=== PATIENT | male | born 1995 | race Caucasian/White ===

== ENCOUNTER 2016-12-10 16:48 | Emergency (ER) | payer MEDICAID ==
[2016-12-10 17:01] VITALS: BP 117/80
--- NOTE | 2016-12-10 17:56 | EDM.PDOC ---
ED HPI GENERAL MEDICAL PROBLEM - General Chief Complaint: Behavioral/Psych Stated Complaint: LAW ENFORCEMENT Time Seen by Provider: 12/10/16 17:38 Source of Information: Reports: Patient, Police History Limitations: Reports: No Limitations - History of Present Illness INITIAL COMMENTS - FREE TEXT/NARRATIVE: Patient is a 21 y/o male who presents to the E.D. with [facility]'s Department. Patient has been detained with petition for involuntary committal obtained since the patient is wandering around homeless laying in the middle of public roads and [place]. The patient states he was kicked out of his mother's residence yesterday after the geosciences associate professor were called when he took her keys to her vehicle. Patient states he slept overnight in his vehicle at the [facility]. When asked if the patient was trying to kill himself he denied it. States he has no means of transportation since car is broken down and has been walking around. He does have a history of prior suicide thoughts approx. one year ago. Patient states plan was in place. He had a gun in his hand and did not go through with it. Patient was found to be wearing long rios, tshirt, socks, and shoes. He presents to ED for medical clearance. Patient denies any additional past medical history and is currently taking no medications. States he does consume alcohol on regular basis with his last drink yesterday consisted of 2 beers. He denies recreational drug use. - Related Data Allergies Allergy/AdvReac Type Severity Reaction Status Date / Time No Known Allergies Allergy Verified 12/10/16 16:55 Home Meds: Home Meds Allergy Pill. 12/10/16 [History] Past Medical History - Past Health History Medical/Surgical History: Denies Medical/Surgical History Cardiovascular History: Reports: None Respiratory History: Reports: None Gastrointestinal History: Reports: None Genitourinary History: Reports: None Neurological History: Reports: None Psychiatric History: Reports: Addiction, Depression Endocrine/Metabolic History: Reports: None Oncologic (Cancer) History: Reports: None Dermatologic History: Reports: None - Infectious Disease History Infectious Disease History: Reports: None - Past Surgical History Other Musculoskeletal Surgeries/Procedures:: Left arm fracture Social & Family History - Family History Family Medical History: Noncontributory - Tobacco Use Smoking Status *Q: Current Status Unknown Second Hand Smoke Exposure: No - Caffeine Use Caffeine Use: Reports: None - Recreational Drug Use Recreational Drug Use: Yes Drug Use in Last 12 Months: No Recreational Drug Type: Reports: Methamphetamine Recreational Drug Last Use: midnight last night ED ROS GENERAL - Review of Systems Review Of Systems: See Below Constitutional: Reports: No Symptoms HEENT: Denies: Vision Change Respiratory: Reports: No Symptoms Cardiovascular: Reports: No Symptoms GI/Abdominal: Reports: No Symptoms : Reports: No Symptoms Musculoskeletal: Reports: No Symptoms Neurological: Reports: No Symptoms Psychiatric: Reports: No Symptoms ED EXAM, BEHAVIORAL HEALTH - Physical Exam Exam: See Below Exam Limited By: No Limitations General Appearance: Alert, WD/WN, No Apparent Distress Eye Exam: Bilateral Eye: PERRL Ears: Hearing Grossly Normal Nose: Normal Inspection Throat/Mouth: Normal Voice, No Airway Compromise Head: Atraumatic, Normocephalic Neck: Normal Inspection, Supple Respiratory/Chest: No Respiratory Distress, No Accessory Muscle Use Cardiovascular: Normal Peripheral Pulses Neurological: Alert, Normal Mood/Affect, CN II-XII Intact, Normal Cognition, Normal Gait, No Motor/Sensory Deficits, Oriented x 3 Psychiatric: Alert, Normal Affect, Normal Cognition, Normal Mood, Oriented. No : Depressed Mood, Flat Affect, Restless, Tearful, Agitated, Homicidal Thoughts, Suicidal Plan, Suicidal Thoughts, Auditory Hallucinations, Visual Hallucinations , Pressured Speech, Paranoid Thoughts Skin Exam: Warm, Dry, Intact, Normal color, No rash COURSE, BEHAVIORAL HEALTH COMP - Course Vital Signs: Last Vital Signs Temp 98.6 F 12/10/16 16:56 Pulse 100 12/10/16 16:56 Resp 16 12/10/16 16:56 BP 117/80 12/10/16 16:56 Pulse Ox 96 12/10/16 16:56 Orders, Labs, Meds: Laboratory Tests 12/10/16 12/10/16 12/10/16 Range/Units 17:40 17:40 18:00 WBC 5.78 (4.23-9.07) K/mm3 RBC 5.41 (4.63-6.08) M/mm3 Hgb 16.2 (13.7-17.5) gm/L Hct 48.8 (40.1-51.0) % MCV 90.2 (79.0-92.2) fl MCH 29.9 (25.7-32.2) pg MCHC 33.2 (32.2-35.5) g/dl RDW Std Deviation 46.1 H (35.1-43.9) fL Plt Count 257 (163-337) K/mm3 MPV 10.6 (9.4-12.3) fl Neutrophils % (Manual) 51 (40-60) % Band Neutrophils % 0 (0-10) % Lymphocytes % (Manual) 46 H (20-40) % Atypical Lymphs % 0 % Monocytes % (Manual) 3 (2-10) % Eosinophils % (Manual) 0 L (0.8-7.0) % Basophils % (Manual) 0 L (0.2-1.2) Platelet Estimate Adequate Plt Morphology Comment Normal RBC Morph Comment Normal Sodium 142 (136-145) mEq/L Potassium 3.7 (3.5-5.1) mEq/L Chloride 106 (98-107) mEq/L Carbon Dioxide 26 (21-32) mEq/L Anion Gap 13.7 (5-15) BUN 12 (7-18) mg/dL Creatinine 1.4 H (0.7-1.3) mg/dL Est Cr Clr Drug Dosing 79.65 mL/min Estimated GFR (MDRD) > 60 (>60) mL/min BUN/Creatinine Ratio 8.6 L (14-18) Glucose 104 (74-106) mg/dL Calcium 9.1 (8.5-10.1) mg/dL Magnesium 2.1 (1.8-2.4) mg/dl Total Bilirubin 1.2 H (0.2-1.0) mg/dL AST 21 (15-37) U/L ALT 25 (16-63) U/L Alkaline Phosphatase 55 (46-116) U/L Total Protein 7.8 (6.4-8.2) g/dl Albumin 4.2 (3.4-5.0) g/dl Globulin 3.6 gm/dL Albumin/Globulin Ratio 1.2 (1-2) TSH 3rd Generation 1.139 (0.358-3.74) uIU/mL Urine Opiates Screen Negative (NEGATIVE) Ur Buprenorphine Scrn Negative (NEGATIVE) Ur Oxycodone Screen Negative (NEGATIVE) Urine Methadone Screen Negative (NEGATIVE) Ur Propoxyphene Screen Negative (NEGATIVE) Ur Barbiturates Screen Negative (NEGATIVE) Ur Tricyclics Screen Negative (NEGATIVE) Ur Phencyclidine Scrn Negative (NEGATIVE) Ur Amphetamine Screen Negative (NEGATIVE) U Methamphetamines Scrn Negative (NEGATIVE) U Benzodiazepines Scrn Negative (NEGATIVE) U Cocaine Metab Screen Negative (NEGATIVE) U Marijuana (THC) Screen Negative (NEGATIVE) Ethyl Alcohol 0.00 (0.00) gm% Re-Assessment/Re-Exam: CBC, chem 14, EtOH, TSH, urine drug tox were ordered. labs reviewed: CBC essentially normal. Urine drug tox negative. 1829 Discussed patient with the on-call provider Dr. Ramirez at [facility]. He has accepted the patient. Requests results of CMP, TSH, and ETOH be provided once available. He will be in contact with [facility] Staff for further information. 1913 TSH within normal limits. Chemistry panel essentially normal with a creatinine of 1.4. EtOH 0.00. Dr. Ramirez has been notified of results. He will take the patient. [facility] Department is arranging transport. Discharge paper work completed. Departure - Departure Time of Disposition: 19:15 Disposition: DC/Tfer to Psych Hosp/Unit 65 Condition: good Clinical Impression: Depressive disorder Suicidal behavior Qualifiers: Attempted self-injury: without attempted self-injury Qualified Code(s): R46.89 - Other symptoms and signs involving appearance and behavior - Discharge Information Forms: ED Department Discharge
== END 2016-12-10 19:24 ==
LOC: JD.ED 16:48
DX: F32.9 Major depressive disorder, single episode, unspecified (principal); R46.89 Other symptoms and signs involving appearance and behavior
CPT/HCPCS: 36415; 80053; 80306; 83735; 84443; 85025; 99285; G0480

== ENCOUNTER 2017-07-10 14:16 | Emergency (ER) | payer MEDICAID ==
[2017-07-10 14:27] VITALS: BP 131/99
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
[2017-07-10 15:58] LABS: ACETAMINOPHEN 0 ug/mL (10-30)
== END 2017-07-10 16:28 | disposition home or self-care (01) ==
LOC: JD.ED 14:16
DX: F20.9 Schizophrenia, unspecified (principal)
CPT/HCPCS: 36415; 80053; 80306; 81001; 82140; 84439; 84443; 85025; 99284; G0480; 99283

== ENCOUNTER 2019-05-05 18:24 | Emergency (ER) | payer MEDICAID ==
[2019-05-05 18:29] VITALS: BP 129/91; PULSE 109
[2019-05-05] MEDS ORDERED: Sodium Chloride 0.9% 1,000 ML IV ONE ×2 (18:35→19:53)
[2019-05-05] MEDS ORDERED: Ondansetron 4 MG/2 ML SDV IVPUSH ONE ×2 (18:35→20:02)
[2019-05-05] MEDS ORDERED: Ondansetron 4 MG/2 ML SDV ONE (18:37)
--- NOTE | 2019-05-05 18:51 | EDM.PDOC ---
ED HPI GENERAL MEDICAL PROBLEM - General Chief Complaint: Drug or Alcohol Abuse Stated Complaint: [facility] Time Seen by Provider: 05/05/19 18:31 Source of Information: Reports: Patient, EMS, RN Notes Reviewed History Limitations: Reports: No Limitations - History of Present Illness INITIAL COMMENTS - FREE TEXT/NARRATIVE: Patient is a 23-year-old male who is brought into the ED by [facility] for the evaluation of an overdose. The ambulance service gave for malaise and Narcan, and 4 mg Zofran after the recall to the resident's for an unresponsive male. The 4 mg Narcan did resuscitate him. They noted that he had pinpoint pupils upon initial presentation. When he came to he admitted to taking "White [place]", which is reportedly heroin. He said that he snorted this. He took a quarter gram. The patient states that he snorted this at around 4 PM today. A friend apparently called EMS for evaluation as they found him unresponsive in the bathroom. He is not complaining of pain anywhere in his body, it is not believed that he hit his head at all, he is acting appropriate at time of initial exam, he knows what month it is and what year it is. He is not having any chest pain, shortness of breath, or diarrhea, and he is having some nausea and some vomiting. He denies any seizure history. He does have a past psych history for which he takes multiple psych medications. - Related Data Allergies Allergy/AdvReac Type Severity Reaction Status Date / Time No Known Allergies Allergy Verified 05/05/19 18:29 Home Meds: Home Meds Benztropine [Cogentin] 0 mg PO DAILY 05/05/19 [History] OLANZapine Pamoate [ZyPREXA Relprevv] 0 mg INJECT ASDIRECTED 05/05/19 [History] Paliperidone Palmitate [Invega Sustenna] 0 mg IM ASDIRECTED 05/05/19 [History] Past Medical History - Past Health History Medical/Surgical History: Denies Medical/Surgical History HEENT History: Reports: None Cardiovascular History: Reports: None Respiratory History: Reports: None Gastrointestinal History: Reports: None Genitourinary History: Reports: None Neurological History: Reports: None Psychiatric History: Reports: Addiction, Depression, Schizophrenia Other Psychiatric History: Pt had overdose of "[place]" heroin on 05/05/19. Pt states that he snorts it. Endocrine/Metabolic History: Reports: None Hematologic History: Reports: None Immunologic History: Reports: None Oncologic (Cancer) History: Reports: None Dermatologic History: Reports: None - Infectious Disease History Infectious Disease History: Reports: None - Past Surgical History Head Surgeries/Procedures: Reports: None Other Musculoskeletal Surgeries/Procedures:: Left arm fracture Social & Family History - Family History Family Medical History: Noncontributory - Tobacco Use Smoking Status *Q: Never Smoker - Caffeine Use Caffeine Use: Reports: Soda - Recreational Drug Use Recreational Drug Use: Yes Drug Use in Last 12 Months: Yes Recreational Drug Type: Reports: Heroin ED ROS GENERAL - Review of Systems Review Of Systems: See Below Constitutional: Denies: Fever, Chills HEENT: Denies: Vision Change Respiratory: Denies: Shortness of Breath Cardiovascular: Denies: Chest Pain GI/Abdominal: Reports: Nausea, Vomiting. Denies: Abdominal Pain, Constipation, Diarrhea : Reports: No Symptoms Musculoskeletal: Reports: No Symptoms Skin: Reports: No Symptoms Neurological: Reports: No Symptoms Psychiatric: Reports: No Symptoms Hematologic/Lymphatic: Reports: No Symptoms Immunologic: Reports: No Symptoms ED EXAM, GENERAL - Physical Exam Exam: See Below Exam Limited By: No Limitations General Appearance: Alert, WD/WN, No Apparent Distress Eye Exam: Bilateral Eye: EOMI, Normal Inspection, PERRL (pupils were around 2mm and equal) Ears: Normal External Exam Nose: Normal Inspection Throat/Mouth: Normal Inspection, Normal Lips, Normal Teeth, Normal Gums, Normal Oropharynx, Normal Voice, No Airway Compromise Head: Atraumatic, Normocephalic Neck: Normal Inspection, Supple Respiratory/Chest: No Respiratory Distress, Lungs Clear, Normal Breath Sounds, No Accessory Muscle Use, Chest Non-Tender Cardiovascular: Normal Peripheral Pulses, Regular Rate, Rhythm, No Murmur Peripheral Pulses: 3+: Radial (L), Radial (R) GI/Abdominal: Normal Bowel Sounds, Soft, Non-Tender, No Distention, No Mass Extremities: Normal Inspection, Normal Capillary Refill Neurological: Alert, Oriented, Normal Cognition, No Motor/Sensory Deficits Psychiatric: Normal Affect, Normal Mood Skin Exam: Warm, Dry, Intact, Normal Color, No Rash Course - Vital Signs Last Recorded V/S: Last Vital Signs Temp 96.3 F 05/05/19 18:25 Pulse 109 H 05/05/19 18:25 Resp 16 05/05/19 18:25 BP 129/91 H 05/05/19 18:25 Pulse Ox 94 L 05/05/19 18:25 - Orders/Labs/Meds Labs: Laboratory Tests 05/05/19 05/05/19 05/05/19 Range/Units 18:31 18:31 18:31 WBC 14.00 H (4.23-9.07) K/mm3 RBC 5.38 (4.63-6.08) M/mm3 Hgb 15.7 (13.7-17.5) gm/dl Hct 46.4 (40.1-51.0) % MCV 86.2 (79.0-92.2) fl MCH 29.2 (25.7-32.2) pg MCHC 33.8 (32.2-35.5) g/dl RDW Std Deviation 44.1 H (35.1-43.9) fL Plt Count 221 (163-337) K/mm3 MPV 10.4 (9.4-12.3) fl Neut % (Auto) 66.7 (34.0-67.9) % Lymph % (Auto) 25.1 (21.8-53.1) % [place] % (Auto) 7.4 (5.3-12.2) % Eos % (Auto) 0.4 L (0.8-7.0) Baso % (Auto) 0.1 (0.1-1.2) % Neut # (Auto) 9.35 H (1.78-5.38) K/mm3 Lymph # (Auto) 3.51 (1.32-3.57) K/mm3 [place] # (Auto) 1.03 H (0.30-0.82) K/mm3 Eos # (Auto) 0.05 (0.04-0.54) K/mm3 Baso # (Auto) 0.02 (0.01-0.08) K/mm3 Sodium 139 (136-145) mEq/L Potassium 3.1 L (3.5-5.1) mEq/L Chloride 102 (98-107) mEq/L Carbon Dioxide 24 (21-32) mEq/L Anion Gap 16.1 H (5-15) BUN 12 (7-18) mg/dL Creatinine 1.5 H (0.7-1.3) mg/dL Est Cr Clr Drug Dosing 78.41 mL/min Estimated GFR (MDRD) 57 (>60) mL/min BUN/Creatinine Ratio 8.0 L (14-18) Glucose 217 H (74-106) mg/dL Calcium 8.9 (8.5-10.1) mg/dL Total Bilirubin 0.8 (0.2-1.0) mg/dL AST 90 H (15-37) U/L ALT 276 H (16-63) U/L Alkaline Phosphatase 89 (46-116) U/L Total Protein 7.6 (6.4-8.2) g/dl Albumin 3.9 (3.4-5.0) g/dl Globulin 3.7 gm/dL Albumin/Globulin Ratio 1.1 (1-2) Urine Opiates Screen Negative (DARNQT=415) Ur Buprenorphine Scrn Negative (CUTOFF=10) Ur Oxycodone Screen Negative (QOF8CO=440) Urine Methadone Screen Negative (BTE8HZ=261) Ur Propoxyphene Screen Negative (JJKOQC=744) Ur Barbiturates Screen Negative (AVHGDQ=175) Ur Tricyclics Screen Negative (VAGSEY=494) Ur Phencyclidine Scrn Negative (CUTOFF=25) Ur Amphetamine Screen Negative (MLRSCH=307) U Methamphetamines Scrn Negative (KAEEQL=237) U Benzodiazepines Scrn Negative (YNGVXB=926) U Cocaine Metab Screen Negative (TVNUKB=168) U Marijuana (THC) Screen Negative (CUTOFF=50) Ethyl Alcohol (0.00) gm% 05/05/19 05/05/19 Range/Units 18:35 21:10 WBC (4.23-9.07) K/mm3 RBC (4.63-6.08) M/mm3 Hgb (13.7-17.5) gm/dl Hct (40.1-51.0) % MCV (79.0-92.2) fl MCH (25.7-32.2) pg MCHC (32.2-35.5) g/dl RDW Std Deviation (35.1-43.9) fL Plt Count (163-337) K/mm3 MPV (9.4-12.3) fl Neut % (Auto) (34.0-67.9) % Lymph % (Auto) (21.8-53.1) % [place] % (Auto) (5.3-12.2) % Eos % (Auto) (0.8-7.0) Baso % (Auto) (0.1-1.2) % Neut # (Auto) (1.78-5.38) K/mm3 Lymph # (Auto) (1.32-3.57) K/mm3 [place] # (Auto) (0.30-0.82) K/mm3 Eos # (Auto) (0.04-0.54) K/mm3 Baso # (Auto) (0.01-0.08) K/mm3 Sodium (136-145) mEq/L Potassium (3.5-5.1) mEq/L Chloride (98-107) mEq/L Carbon Dioxide (21-32) mEq/L Anion Gap (5-15) BUN (7-18) mg/dL Creatinine (0.7-1.3) mg/dL Est Cr Clr Drug Dosing mL/min Estimated GFR (MDRD) (>60) mL/min BUN/Creatinine Ratio (14-18) Glucose (74-106) mg/dL Calcium (8.5-10.1) mg/dL Total Bilirubin (0.2-1.0) mg/dL AST (15-37) U/L ALT (16-63) U/L Alkaline Phosphatase (46-116) U/L Total Protein (6.4-8.2) g/dl Albumin (3.4-5.0) g/dl Globulin gm/dL Albumin/Globulin Ratio (1-2) Urine Opiates Screen Negative (IGRCVH=865) Ur Buprenorphine Scrn Negative (CUTOFF=10) Ur Oxycodone Screen Negative (GXM7ML=499) Urine Methadone Screen Negative (WAR6EQ=559) Ur Propoxyphene Screen Negative (RXRAFC=325) Ur Barbiturates Screen Negative (DLWFOF=416) Ur Tricyclics Screen Negative (UOSIBN=978) Ur Phencyclidine Scrn Negative (CUTOFF=25) Ur Amphetamine Screen Negative (DZHBFO=239) U Methamphetamines Scrn Negative (LJWLHP=735) U Benzodiazepines Scrn Negative (NJQWLQ=051) U Cocaine Metab Screen Negative (VGAJHD=903) U Marijuana (THC) Screen Negative (CUTOFF=50) Ethyl Alcohol 0.00 (0.00) gm% Meds: Medications Discontinued Medications Generic Name Dose Route Start Last Admin Trade Name Kamala PRN Reason Stop Dose Admin Sodium Chloride 1,000 mls @ 999 mls/hr 05/05/19 18:35 05/05/19 18:41 Normal Saline IV 05/05/19 19:35 999 mls/hr ONETIME ONE Administration Sodium Chloride 1,000 mls @ 999 mls/hr 05/05/19 19:53 05/05/19 19:56 Normal Saline IV 05/05/19 20:53 999 mls/hr ONETIME ONE Administration Ondansetron HCl 4 mg 05/05/19 18:35 05/05/19 18:41 Zofran IVPUSH 05/05/19 18:36 4 mg ONETIME ONE Administration Ondansetron HCl Confirm 05/05/19 18:37 05/05/19 18:43 Zofran Administered 05/05/19 18:38 Not Given Dose 4 mg .ROUTE .STK-MED ONE Ondansetron HCl 4 mg 05/05/19 20:02 05/05/19 20:05 Zofran IVPUSH 05/05/19 20:03 4 mg ONETIME ONE Administration - Re-Assessments/Exams Free Text/Narrative Re-Assessment/Exam: 05/05/19 18:55 Patient presents to the ED for evaluation of an overdose. He will be observed in this ER for a few hours, I did order CBC, CMP, blood alcohol level, and a urine drug screen for further evaluation. Patient was mildly nauseous upon arrival to the ER, 4 mg Zofran will be repeated, he'll be given some IV fluids as well. 05/05/19 19:53 Patient was reassessed at bedside, and states he is feeling better, and he does look much better as well. Labs are back, and there are no gross acute abnormalities. Released nothing to be worried about. Will give another liter fluid. Patient was told to call with any complaints or concerns, plan is to still observe and discharge if no adverse side effects. Family was in room and are thankful that he is okay. 05/05/19 21:03 Patient's second bag of fluids is completed, the nurse will obtain the second drug screen, to see if any other drugs were mixed in with the heroin. Will likely discharge after the patient provides a urine sample. Departure - Departure Time of Disposition: 21:04 Disposition: Home, Self-Care 01 Condition: Fair Clinical Impression: Accidental overdose of heroin Qualifiers: Encounter type: initial encounter Qualified Code(s): T40.1X1A - Poisoning by heroin, accidental (unintentional), initial encounter - Discharge Information *PRESCRIPTION DRUG MONITORING PROGRAM REVIEWED*: No *COPY OF PRESCRIPTION DRUG MONITORING REPORT IN PATIENT PURNIMA: No Instructions: Accidental Overdose, Finding Treatment for Addiction Referrals: PCP,Unknown [Primary Care Provider] - Additional Instructions: You were evaluated in the ER tonight for your accidental heroin overdose. You were given IV fluids in the ER and some antinausea medications, this did seem to help relieve your symptoms. Please try to refrain from further drug use, as it is dangerous and you may not know what it is mixed with. Recommend that you follow up with [facility] services, for substance abuse counseling, the telephone number is [phone], their emergency crisis number is [phone]. Please return to the ED if your symptoms change or worsen.
== END 2019-05-05 21:54 | disposition home or self-care (01) ==
LOC: JD.ED 18:24
DX: T40.1X1A Poisoning by heroin, accidental (unintentional), initial encounter (principal); F20.9 Schizophrenia, unspecified; Z79.899 Other long term (current) drug therapy
CPT/HCPCS: 36415; 80053; 80306; 80320; 85025; 96361; 96374; 96376; 99284; J2405; J7040; 99285; G0480